=== PATIENT | male | born 1970 | race Caucasian/White ===

== ENCOUNTER 2017-07-27 19:50 | Observation (INO) | payer BC, OTHER ==
[~2017-07-27] VITALS: Ht 182.9 cm; Wt 116.3 kg
[~2017-07-27 19:50] MED LIST: ASPI325T45 PO; LEVO100T7 PO; PLV75 PO; ZCR10 PO
[2017-07-27] MEDS ORDERED: LISI-461 PO (20:04)
[2017-07-27] MEDS ORDERED: CLOP1TAB15 PO (20:04)
[2017-07-27] MEDS ORDERED: SIMV-150 PO (20:04)
--- NOTE | 2017-07-27 20:31 | EMERGENCY ROOM VISIT NOTE ---
History Report prepared by Madeline: Chuy Ny Under the Supervision of: Dr. Deepak Lawson M.D. First contact with patient: 20:10 Chief Complaint: STROKE SYMPTOMS Stated Complaint: LEG NUMBNESS,BLURRY VISION, HX OF STROKE History of Present Illness The patient is a 47 year old male who presents to the Emergency Room with complaints of recurrent leg weakness at 1915 today. He notes that he became dizzy and his left leg became heavy. He reports barely being able to walk because he could hardly move his left leg. He states the symptoms lasted for one minutes, though recurred. He has a history of a stroke in the past and reports similar symptoms along with blurry vision, ringing in the ears, slurred speech, leg weakness, and could not sit up. He does not currently have any changes in vision, ringing in the ears, or slurred speech. He denies any fevers , chills, cough, or congestion. Per nursing staff, the patient's blood sugar is 93. He denies any history of cardiac problems or hypertension, though he was placed on blood pressure medication as a precaution. Source of History: patient Onset: 1914 today Position: leg (left) Quality: other (weakness) Timing: other (recurrent) Associated Symptoms: No fevers, No chills, No cough Note: He denies any congestion. He denies any changes in vision, ringing in the ears, or slurred speech. Review of Systems See HPI for pertinent positives and negatives. A total of ten systems were reviewed and were otherwise negative. Past Medical & Surgical Medical Problems: (1) Hypothyroid (2) TIA (transient ischemic attack) Family History No significant family history Social History Smoking Status: Never Smoker Alcohol Use: none Drug Use: none Marital Status: Housing Status: lives with significant other Occupation Status: employed Current/Historical Medications Scheduled Clopidogrel (Plavix), 75 MG PO DAILY Levothyroxine Sodium (Levothyroxine Sodium), 100 MCG PO DAILY Lisinopril (Lisinopril), 1 TAB PO DAILY Simvastatin (Simvastatin), 1 TAB PO HS Scheduled PRN Aspirin (Aspirin), 325 MG PO DAILY PRN for Pain Allergies Coded Allergies: No Known Allergies (Verified , 07/27/17) Physical Exam Vital Signs Date Time Temp Pulse Resp B/P (MAP) Pulse Ox O2 Delivery O2 Flow Rate FiO2 07/27/17 20:59 65 20 126/82 96 07/27/17 20:31 96 Room Air 07/27/17 19:55 36.3 78 18 167/104 96 Room Air Physical Exam GENERAL: Awake, alert, well appearing, no distress HENT: Normocephalic, atraumatic. TM's normal. Oropharynx unremarkable. EYES: PERRL. EOMI. Normal conjunctiva. Sclera non-icteric. NECK: Supple. No nuchal rigidity. FROM. No JVD or bruit. RESPIRATORY: CTAB CARDIAC: RRR. No murmur. ABDOMEN: Soft, non distended. No tenderness to palpation. No rebound or guarding. No masses. RECTAL: Deferred. MUSCULOSKELETAL: Unremarkable. No edema. No discoloration. Gross motor strength symmetric. NEURO: Cranial nerves 2-12 grossly intact. Normal sensorium. No sensory or motor deficits noted. Speech normal. No pronator drift. Normal cerebellar function with arkzaq-sy-msye, alternating palms, qahq-jb-rquw SKIN: No rash or jaundice noted. LYMPH: No adenopathy. Medical Decision & Procedures ER Provider Diagnostic Interpretation: Radiology results as stated below per my review and radiologist interpretation: CHEST ONE VIEW PORTABLE CLINICAL HISTORY: weakness dyspnea COMPARISON STUDY: No previous studies for comparison. FINDINGS: The bones soft tissues and hemidiaphragms are normal. The cardiomediastinal silhouette is normal. The lungs are clear. The pulmonary vasculature is normal. IMPRESSION: Negative chest. The above report was generated using voice recognition software. It may contain grammatical, syntax or spelling errors. Electronically signed by: Charanjit Islas M.D. 07/27/2017 8:39 PM Dictated Date/Time: 07/27/2017 8:38 PM HEAD WITHOUT CONTRAST (CT) CT DOSE: 1110.40 mGy.cm HISTORY: Mental status change Stroke TECHNIQUE: Multiaxial CT images of the head were performed without the use of intravenous contrast. A dose lowering technique was utilized adhering to the principles of ALARA. Comparison: None. Findings: The paranasal sinuses and mastoid air cells are clear. The calvarium and skull base are intact. The ventricles and sulci are within normal limits. There is no mass, hematoma, midline shift, or acute infarct. Impression: No acute intracranial abnormality. The above report was generated using voice recognition software. It may contain grammatical, syntax or spelling errors. Electronically signed by: Charanjit Islas M.D. 07/27/2017 9:00 PM Dictated Date/Time: 07/27/2017 8:59 PM NECK ANGIO WITH CONTRAST HISTORY: Mental status change stroke TECHNIQUE: Multiaxial CT images of the neck were performed following the intravenous administration of contrast to evaluate the major cervical vessels. Maximum intensity projection images were also obtained. All measurements were calculated based on NASCET criteria. A dose lowering technique was utilized adhering to the principles of ALARA. COMPARISON STUDY: MRA 11/30/2014 FINDINGS: The aortic arch and proximal great vessels are widely patent. There is no significant stenosis, occlusion, or dissection identified within the bilateral common carotid, internal carotid, or vertebral arteries. IMPRESSION: No significant stenosis, occlusion, or dissection identified within the carotid or vertebral arteries. The above report was generated using voice recognition software. It may contain grammatical, syntax or spelling errors. Electronically signed by: Charanjit Islas M.D. 07/27/2017 9:03 PM Dictated Date/Time: 07/27/2017 9:01 PM HEAD ANGIO WITH CONTRAST CLINICAL HISTORY: Mental status change Stroke TECHNIQUE: Transaxial acquisition with multi axial reformatted images COMPARISON STUDY: MRA brain 11/29/2014 FINDINGS: Negative intracranial CTA. All major structures the anterior middle and para posterior cerebral circulation are unremarkable. No evidence for aneurysm or dissection. IMPRESSION: Normal study The above report was generated using voice recognition software. It may contain grammatical, syntax or spelling errors. Electronically signed by: Charanjit Islas M.D. 07/27/2017 9:06 PM Dictated Date/Time: 07/27/2017 9:04 PM Laboratory Results 07/27/17 20:15 Red Blood Count 4.88, Mean Corpuscular Volume 90.0, Mean Corpuscular Hemoglobin 32.0, Mean Corpuscular Hemoglobin Concent 35.5, Mean Platelet Volume 9.9, Neutrophils (%) (Auto) 59.5, Lymphocytes (%) (Auto) 27.9, Monocytes (%) (Auto) 10.3, Eosinophils (%) (Auto) 1.9, Basophils (%) (Auto) 0.2, Neutrophils # (Auto ) 3.12, Lymphocytes # (Auto) 1.46, Monocytes # (Auto) 0.54, Eosinophils # (Auto ) 0.10, Basophils # (Auto) 0.01 07/27/17 20:15 Test 07/27/17 20:10 07/27/17 20:15 07/27/17 20:17 Bedside Glucose 93 mg/dl (70-99) White Blood Count 5.24 K/uL (4.8-10.8) Red Blood Count 4.88 M/uL (4.7-6.1) Hemoglobin 15.6 g/dL (14.0-18.0) Hematocrit 43.9 % (42-52) Mean Corpuscular Volume 90.0 fL (80-100) Mean Corpuscular Hemoglobin 32.0 pg (25-34) Mean Corpuscular Hemoglobin Concent 35.5 g/dl (32-36) Platelet Count 181 K/uL (130-400) Mean Platelet Volume 9.9 fL (7.4-10.4) Neutrophils (%) (Auto) 59.5 % Lymphocytes (%) (Auto) 27.9 % Monocytes (%) (Auto) 10.3 % Eosinophils (%) (Auto) 1.9 % Basophils (%) (Auto) 0.2 % Neutrophils # (Auto) 3.12 K/uL (1.4-6.5) Lymphocytes # (Auto) 1.46 K/uL (1.2-3.4) Monocytes # (Auto) 0.54 K/uL (0.11-0.59) Eosinophils # (Auto) 0.10 K/uL (0-0.5) Basophils # (Auto) 0.01 K/uL (0-0.2) RDW Standard Deviation 39.6 fL (36.4-46.3) RDW Coefficient of Variation 12.1 % (11.5-14.5) Immature Granulocyte % (Auto) 0.2 % Immature Granulocyte # (Auto) 0.01 K/uL (0.00-0.02) Prothrombin Time 10.5 SECONDS (9.0-12.0) Prothromb Time International Ratio 1.0 (0.9-1.1) Activated Partial Thromboplast Time 26.6 SECONDS (21.0-31.0) Partial Thromboplastin Ratio 1.0 Anion Gap 8.0 mmol/L (3-11) Est Creatinine Clear Calc Drug Dose 92.4 ml/min Estimated GFR () 75.7 Estimated GFR (Non- 65.3 BUN/Creatinine Ratio 14.8 (10-20) Calcium Level 8.8 mg/dl (8.5-10.1) Magnesium Level 1.9 mg/dl (1.8-2.4) Total Creatine Kinase 156 U/L (39-308) Creatine Kinase MB 1.7 ng/ml (0.5-3.6) Creatine Kinase MB Ratio 1.1 (0-3.0) Troponin I < 0.015 ng/ml (0-0.045) Thyroid Stimulating Hormone (TSH) 17.900 uIu/ml (0.300-4.500) Bedside Prothrombin Time INR 1.0 (0.9-1.1) Laboratory results reviewed by me ECG Per My Interpretation Indication: weakness Rate (beats per minute): 67 Rhythm: normal sinus Findings: no acute ischemic change, other (Normal axis. ) Change: Patient's electrocardiogram interpreted by me. ED Course 2019: The patient was evaluated in room C6. A complete history and physical exam was performed. 2158: I spoke with Dr. Centeno, [facility]. We discussed the patient' s case. The patient will be evaluated by the [facility] for further management. Medical Decision I reviewed the patient's past medical history, medications, and the nursing notes as described above. The patient's presentation and history were concerning for CVA, TIA, migraine, pneumonia, arrhythmia, dehydration, electrolyte abnormalities, UTI among others. The patient is a 47-year-old gentleman with a past medical history of stroke without residual deficits presents emergency Department with 15 minutes of left leg numbness and weakness that resolved spontaneously prior to arrival per [facility]. On arrival the patient is no acute distress, afebrile stable vital signs. He is neurologically intact including normal cerebellar function with finger-to- nose, alternating palms, slaw-[id number]-cwcl. NIH score 0. CT head and CTA of the head and neck negative for acute stroke or's large vessel occlusion. Chest x- ray unremarkable. Labs unremarkable. The patient's history of prior stroke it is reasonable to admit the patient for further stroke rule out. [facility] for further management. Medication Reconcilliation Current Medication List: was personally reviewed by me Blood Pressure Screening Patient's blood pressure: Elevated blood pressure Blood pressure disposition: Elevated BP felt to be situational Consults Time Called: 2129 Consulting Physician: [facility] Returned Call: [phone] [facility] We discussed the patient's case. The patient will be evaluated by the [facility] for further management. Impression Primary Impression: Transient weakness of left leg Scribe Attestation The scribe's documentation has been prepared under my direction and personally reviewed by me in its entirety. I confirm that the note above accurately reflects all work, treatment, procedures, and medical decision making performed by me. Departure Information Dispostion Being Evaluated By Hospitalist Referrals Adal Joel MD (PCP) Patient Instructions My [facility] Stroke History Time Last Known Well 1914 Stroke t-PA Criteria Reviewed Does NOT meet criteria for t-PA Reason t-PA Not Given Treatment not indicated
[2017-07-27 20:32] LABS: BASO % 0.2 %; BASO ABS # 0.01 K/uL (0-0.2); EOS % 1.9 %; HEMATOCRIT 43.9 % (42-52); HEMOGLOBIN 15.6 g/dL (14.0-18.0); IG# 0.01 K/uL (0.00-0.02); LYMPH % 27.9 %; LYMPH ABS # 1.46 K/uL (1.2-3.4); MEAN CORPUSCULAR HGB CONC 35.5 g/dl (32-36); MEAN PLATELET VOLUME 9.9 fL (7.4-10.4); MONO % 10.3 %; MONO ABS # 0.54 K/uL (0.11-0.59); NEUT % 59.5 %; NEUT ABS # 3.12 K/uL (1.4-6.5); PLATELET COUNT 181 K/uL (130-400); RED CELL DISTRIBUTION WIDTH CV 12.1 % (11.5-14.5); RED CELL DISTRIBUTION WIDTH SD 39.6 fL (36.4-46.3); WHITE BLOOD COUNT 5.24 K/uL (4.8-10.8)
--- NOTE | 2017-07-27 20:40 | DIAGNOSTIC IMAGING REPORT ---
CHEST ONE VIEW PORTABLE CLINICAL HISTORY: weakness dyspnea COMPARISON STUDY: No previous studies for comparison. FINDINGS: The bones soft tissues and hemidiaphragms are normal. The cardiomediastinal silhouette is normal. The lungs are clear. The pulmonary vasculature is normal. IMPRESSION: Negative chest. The above report was generated using voice recognition software. It may contain grammatical, syntax or spelling errors. Electronically signed by: Charanjit Islas M.D. 07/27/2017 8:39 PM Dictated Date/Time: 07/27/2017 8:38 PM
[2017-07-27 20:43] LABS: PTT PATIENT 26.6 SECONDS (21.0-31.0)
[2017-07-27 20:47] LABS: BLOOD UREA NITROGEN 19 mg/dl (7-18); CALCIUM 8.8 mg/dl (8.5-10.1); CARBON DIOXIDE 27 mmol/L (21-32); CREATININE 1.28 mg/dl (0.60-1.40); GLUCOSE 93 mg/dl (70-99); POTASSIUM 3.6 mmol/L (3.5-5.1); SODIUM 139 mmol/L (136-145)
[2017-07-27 20:53] LABS: CKMB 1.7 ng/ml (0.5-3.6)
--- NOTE | 2017-07-27 21:01 | DIAGNOSTIC IMAGING REPORT ---
HEAD WITHOUT CONTRAST (CT) CT DOSE: 1110.40 mGy.cm HISTORY: Mental status change Stroke TECHNIQUE: Multiaxial CT images of the head were performed without the use of intravenous contrast. A dose lowering technique was utilized adhering to the principles of ALARA. Comparison: None. Findings: The paranasal sinuses and mastoid air cells are clear. The calvarium and skull base are intact. The ventricles and sulci are within normal limits. There is no mass, hematoma, midline shift, or acute infarct. Impression: No acute intracranial abnormality. The above report was generated using voice recognition software. It may contain grammatical, syntax or spelling errors. Electronically signed by: Charanjit Islas M.D. 07/27/2017 9:00 PM Dictated Date/Time: 07/27/2017 8:59 PM
--- NOTE | 2017-07-27 21:04 | DIAGNOSTIC IMAGING REPORT ---
NECK ANGIO WITH CONTRAST HISTORY: Mental status change stroke TECHNIQUE: Multiaxial CT images of the neck were performed following the intravenous administration of contrast to evaluate the major cervical vessels. Maximum intensity projection images were also obtained. All measurements were calculated based on NASCET criteria. A dose lowering technique was utilized adhering to the principles of ALARA. COMPARISON STUDY: MRA 11/30/2014 FINDINGS: The aortic arch and proximal great vessels are widely patent. There is no significant stenosis, occlusion, or dissection identified within the bilateral common carotid, internal carotid, or vertebral arteries. IMPRESSION: No significant stenosis, occlusion, or dissection identified within the carotid or vertebral arteries. The above report was generated using voice recognition software. It may contain grammatical, syntax or spelling errors. Electronically signed by: Charanjit Islas M.D. 07/27/2017 9:03 PM Dictated Date/Time: 07/27/2017 9:01 PM
--- NOTE | 2017-07-27 21:07 | DIAGNOSTIC IMAGING REPORT ---
HEAD ANGIO WITH CONTRAST CLINICAL HISTORY: Mental status change Stroke TECHNIQUE: Transaxial acquisition with multi axial reformatted images COMPARISON STUDY: MRA brain 11/29/2014 FINDINGS: Negative intracranial CTA. All major structures the anterior middle and para posterior cerebral circulation are unremarkable. No evidence for aneurysm or dissection. IMPRESSION: Normal study The above report was generated using voice recognition software. It may contain grammatical, syntax or spelling errors. Electronically signed by: Charanjit Islas M.D. 07/27/2017 9:06 PM Dictated Date/Time: 07/27/2017 9:04 PM
[2017-07-27] MEDS ORDERED: TRAMADOL HCL 50 MG TAB PO PRN (23:00)
[2017-07-27] MEDS ORDERED: NITROGLYCERIN 0.4 MG SL PER TAB CHARGE SL PRN (23:00)
[2017-07-27] MEDS ORDERED: PHARMACIST DISCHARGE MED REC CONSULT PRN (23:00)
[2017-07-27] MEDS ORDERED: LORAZEPAM 2 MG/ML 1 ML VIAL IV PRN (23:00)
[2017-07-27] MEDS ORDERED: PROCHLORPERAZINE INJ 5 MG in SYRINGE 4 ML IV PRN (23:00)
[2017-07-27] MEDS ORDERED: ACETAMINOPHEN 325 MG TAB PO PRN (23:00)
[2017-07-28] VITALS (9 sets, daily range): BP systolic 127–161; BP diastolic 73–101; PULSE 52–67; TEMP 36.5–36.8; O2SAT 94–97; Ht 182.9 cm; Wt 116.3 kg
--- NOTE | 2017-07-28 00:11 | HISTORY & PHYSICAL EXAMINATION ---
DATE OF ADMISSION: 07/27/2017 PRIMARY CARE PHYSICIAN: Adal Joel MD. CHIEF COMPLAINT: Left leg weakness, numbness. HISTORY OF PRESENT ILLNESS: History obtained from patient and records. Medical history significant for CVA, hypertension, hypothyroidism, PFO, arthritis. Recent confinement November 2014 for cerebellar CVA. Patient discharged on Aspirin, Plavix. Aspirin later discontinued outpatient. Patient was at work today when he noted left lower extremity weakness, numbness symptoms, no back pain. Lasted for about a minute. Transient dizziness and vague headache symptoms. Compliant with home medications. Patient took rbyc-uom-ttrntxy aspirin. Patient currently comfortable at the ER. MEDICAL HISTORY: As above. SURGERIES: Knee surgery. HOME MEDICATIONS: Include Plavix, lisinopril, levothyroxine, simvastatin. ALLERGIES: No known drug allergies. FAMILY HISTORY: There is a family history of alcoholism, AFib. PERSONAL AND SOCIAL HISTORY: Nonsmoker, no chronic intake of alcoholic beverages. [employer] employee. REVIEW OF SYSTEMS: As per HPI. All 10 systems reviewed. All other ROS negative. PHYSICAL EXAMINATION: VITAL SIGNS: Blood pressure was noted to be 167/104, later 122/82, pulse rate 70, RR 18, temperature 36.7, sats 96 on room air. GENERAL: Obese, comfortable, pleasant, no respiratory distress. SKIN: Normal color. Warm. HEENT: Partial alopecia. Pale palpebral conjunctiva. No ptosis. Moist buccal mucosa. NECK: Short, supple. CHEST: Clear to auscultation. No tenderness. HEART: Regular rate and rhythm. No murmur. ABDOMEN: Soft, nontender. EXTREMITIES: No edema, no gross deformities. No tenderness. NEUROLOGIC: Coherent. No gross focality. LABORATORY DATA: Hemoglobin was noted to be 15.6, hematocrit 32.9, white cell count 9, platelets 181. Sodium 139, potassium 3.6, chloride 103, CO2 27, creatinine 1.28, BUN 19. TSH 17.9 CT head, no acute pathology. CT head angio, normal study. CT neck angio no significant stenosis. ASSESSMENT: 1. Transient ischemic attack. History of cerebellar CVA. 2. Hypertension, slightly elevated 3. Hypothyroidism, TSH markedly elevated. PLAN: Observation PCU, neuro checks MRI/MRA brain Aspirin and Plavix for now for secondary stroke prevention until recurrent stroke ruled out Neurology consult RE TIA (Patient known to Dr. Macias) Permissive hypertension until recurrent stroke ruled out Recheck other TFTs, Levothyroxine dose may need adjustment pending results DVT prophylaxis Lovenox subQ. Full code. MTDD
[2017-07-28] MEDS ORDERED: NSS + 20MEQ KCL 1000ML 1,000 ML IV ONE (01:00)
[2017-07-28] MEDS ORDERED: IV FLUIDS COMPLETED PRN (01:00)
[2017-07-28] MEDS ORDERED: INFLUENZA ADMINISTRATION CHARGE ONE (05:30)
[2017-07-28] MEDS ORDERED: INFLUENZA VIRUS QUAD VACCINE 0.5 ML SYR IM. ONE (05:30)
[2017-07-28 06:19] LABS: BASO % 0.2 %; BASO ABS # 0.01 K/uL (0-0.2); EOS % 2.5 %; EOS ABS # 0.13 K/uL (0-0.5); HEMATOCRIT 43.5 % (42-52); HEMOGLOBIN 15.2 g/dL (14.0-18.0); IG# 0.01 K/uL (0.00-0.02); LYMPH % 30.2 %; LYMPH ABS # 1.59 K/uL (1.2-3.4); MEAN CELL VOLUME 90.8 fL (80-100); MEAN CORPUSCULAR HEMOGLOBIN 31.7 pg (25-34); MEAN CORPUSCULAR HGB CONC 34.9 g/dl (32-36); MEAN PLATELET VOLUME 9.9 fL (7.4-10.4); MONO % 11.4 %; NEUT % 55.5 %; NEUT ABS # 2.92 K/uL (1.4-6.5); PLATELET COUNT 164 K/uL (130-400); RED CELL DISTRIBUTION WIDTH CV 12.2 % (11.5-14.5); RED CELL DISTRIBUTION WIDTH SD 40.5 fL (36.4-46.3); WHITE BLOOD COUNT 5.26 K/uL (4.8-10.8)
[2017-07-28] MEDS ORDERED: LEVOTHYROXINE 100 MCG TAB PO SCH (06:30)
--- NOTE | 2017-07-28 07:02 | DIAGNOSTIC IMAGING REPORT ---
MRI OF THE BRAIN WITHOUT CONTRAST CLINICAL HISTORY: Pleural effusion. Left leg numbness. History of stroke. COMPARISON STUDY: MRI of the brain November 29, [address]/CTA of the head July 27, 2017. TECHNIQUE: Utilizing a 1.5 Tonya magnet and dedicated coil, multiplanar, multiecho imaging of the brain was performed without IV contrast. FINDINGS: There are no foci of restricted diffusion. No acute intracranial hemorrhage, midline shift or mass effect is present. Brain volume is normal. Ventricular system is normal. Basilar cisterns are patent. There are no extra-axial collections. Flow-voids for the major intracranial vessels are present. No intracranial masses identified on this unenhanced examination. A lacunar infarcts within the right cerebellar hemisphere are noted. These correspond to the infarcts shown on MRI of November 29, 2014. A few punctate white matter T2 hyperintense foci are unchanged. IMPRESSION: 1. No acute intracranial findings. 2. Old lacunar infarcts within the right cerebellar hemisphere which corresponds to the infarcts shown on MRI of November 29, 2014. Electronically signed by: Alessandro Brian M.D. 07/28/2017 7:01 AM Dictated Date/Time: 07/28/2017 6:56 AM
--- NOTE | 2017-07-28 07:13 | DIAGNOSTIC IMAGING REPORT ---
MRA HEAD WITHOUT CONTRAST HISTORY: 47 years-old Male Stroke - Attention to [place] acute strokelike symptoms COMPARISON: MRI of the brain of same day, CTA had 07/27/2017. TECHNIQUE: MRA of the head was obtained without contrast utilizing 3-D [id number] sequencing with MIP reformats. All measurements were obtained according to NASCET criteria. FINDINGS: The imaged bilateral internal cerebral arteries are widely patent. The bilateral middle and anterior cerebral arteries are also widely patent. The anterior communicating artery is unremarkable. Imaged bilateral vertebral arteries are patent. The basilar artery and bilateral posterior cerebral arteries are patent. origin of the right posterior cerebral artery. No aneurysm, dissection, high-grade stenosis or proximal branch occlusion. IMPRESSION: 1. No high-grade stenosis, aneurysm, dissection or proximal branch occlusion. 2. origin of the right posterior cerebral artery. The above report was generated using voice recognition software. It may contain grammatical, syntax or spelling errors. Electronically signed by: Enio Holley M.D. 07/28/2017 7:12 AM Dictated Date/Time: 07/28/2017 7:04 AM
[2017-07-28] MEDS: CLOPIDOGREL BISULFATE 75 MG TAB PO SCH (08:23)
[2017-07-28] MEDS: ASPIRIN 81 MG ECTAB PO SCH (08:23)
[2017-07-28] MEDS: ENOXAPARIN 40 MG/0.4 ML SYR SC SCH (08:24)
[2017-07-28] MEDS ORDERED: ASPIRIN 325 MG ECTAB PO SCH (09:00)
[2017-07-28] MEDS ORDERED: LISINOPRIL 10 MG TAB PO ONE (12:30)
--- NOTE | 2017-07-28 12:38 | Progress Note ---
Subjective Date of Service: Jul 28, 2017. Subjective Pt evaluation today including: conversation w/ patient, physical exam, lab review, review of studies, review of inpatient medication list Saw/examined the patient in room 280 He is doing well, no residual symptoms Present with transient L lower extremity weakness and numbness/tingling Problem List Medical Problems: (1) Transient weakness of left leg Status: Acute Review of Systems Constitutional: + weakness, + fatigue Respiratory: No cough, No sputum, No shortness of breath Cardiac: No chest pain Abdomen: No pain, No nausea, No vomiting, No diarrhea Neurologic: No paralysis, No weakness (resolved), No numbness/tingling ( resolved), No vertigo, No balance problems Heme: No abnormal bleeding/bruising Medications Current Inpatient Medications Medications (Trade) Dose Ordered Sig/Reta Route Start Time Stop Time Status Last Admin Dose Admin Enoxaparin Sodium (Lovenox Inj) 40 mg Q24H SC 07/28/17 09:00 08/27/17 08:59 07/28/17 08:24 40 MG Potassium Chloride/Sodium Chloride 1,000 ml @ 75 mls/hr [id number] ONCE IV 07/28/17 01:00 07/28/17 14:19 07/28/17 01:07 75 MLS/HR Acetaminophen (Tylenol Tab) 650 mg Q4H PRN PO 07/27/17 23:00 08/26/17 22:59 Nitroglycerin (Nitrostat Tab) 0.4 mg UD PRN SL 07/27/17 23:00 08/26/17 22:59 Aspirin (Ecotrin Tab) 81 mg QAM PO 07/28/17 09:00 08/27/17 08:59 07/28/17 08:23 81 MG Miscellaneous Information (Pharmacist Discharge Med Rec Consult) 1 ea UD PRN N/A 07/27/17 23:00 08/26/17 22:59 Tramadol HCl (Ultram Tab) 25 mg Q6H PRN PO 07/27/17 23:00 08/26/17 22:59 Prochlorperazine Edisylate 5 mg/ Syringe 5 ml @ 5 mls/min Q6H PRN IV 07/27/17 23:00 08/26/17 22:59 Lorazepam (Ativan Inj) 0.5 mg Q4H PRN IV 07/27/17 23:00 08/26/17 22:59 Clopidogrel Bisulfate (plAVix TAB) 75 mg DAILY PO 07/28/17 09:00 08/27/17 08:59 07/28/17 08:23 75 MG Simvastatin (Zocor Tab) 10 mg HS PO 07/28/17 21:00 08/27/17 20:59 Miscellaneous (Iv Fluids Completed) 1 ea PRN PRN N/A 07/28/17 01:00 07/28/18 00:59 Levothyroxine Sodium (Synthroid Tab) 112 mcg DAILYBB PO 07/29/17 06:30 08/28/17 06:29 Objective Vital Signs Date Time Temp Pulse Resp B/P (MAP) Pulse Ox O2 Delivery O2 Flow Rate FiO2 07/28/17 08:09 Room Air 07/28/17 07:49 36.6 52 20 149/90 (109) 97 Room Air 07/28/17 05:11 36.5 54 18 129/73 (91) 94 Room Air 07/28/17 04:00 Room Air 07/28/17 00:59 36.6 57 20 134/81 Room Air 07/27/17 23:35 69 16 149/96 96 07/27/17 22:45 67 20 129/82 96 Room Air 07/27/17 20:59 65 20 126/82 96 07/27/17 20:31 96 Room Air 07/27/17 19:55 36.3 78 18 167/104 96 Room Air Physical Exam General Appearance: no apparent distress Respiratory/Chest: chest non-tender, lungs clear, normal breath sounds, no respiratory distress, no accessory muscle use Cardiovascular: regular rate, rhythm, no edema, no murmur Abdomen: normal bowel sounds, non tender, soft Neurologic/Psychiatric: extension course counselor II-XII nml as tested, no motor/sensory deficits, alert, normal mood/affect, oriented x 3 Skin: normal color Lymphatic: no adenopathy Laboratory Results Last 24 Hours Test 07/27/17 20:10 07/27/17 20:15 07/27/17 20:17 07/28/17 05:43 Bedside Glucose 93 mg/dl White Blood Count 5.24 K/uL 5.26 K/uL Red Blood Count 4.88 M/uL 4.79 M/uL Hemoglobin 15.6 g/dL 15.2 g/dL Hematocrit 43.9 % 43.5 % Mean Corpuscular Volume 90.0 fL 90.8 fL Mean Corpuscular Hemoglobin 32.0 pg 31.7 pg Mean Corpuscular Hemoglobin Concent 35.5 g/dl 34.9 g/dl Platelet Count 181 K/uL 164 K/uL Mean Platelet Volume 9.9 fL 9.9 fL Neutrophils (%) (Auto) 59.5 % 55.5 % Lymphocytes (%) (Auto) 27.9 % 30.2 % Monocytes (%) (Auto) 10.3 % 11.4 % Eosinophils (%) (Auto) 1.9 % 2.5 % Basophils (%) (Auto) 0.2 % 0.2 % Neutrophils # (Auto) 3.12 K/uL 2.92 K/uL Lymphocytes # (Auto) 1.46 K/uL 1.59 K/uL Monocytes # (Auto) 0.54 K/uL 0.60 K/uL Eosinophils # (Auto) 0.10 K/uL 0.13 K/uL Basophils # (Auto) 0.01 K/uL 0.01 K/uL RDW Standard Deviation 39.6 fL 40.5 fL RDW Coefficient of Variation 12.1 % 12.2 % Immature Granulocyte % (Auto) 0.2 % 0.2 % Immature Granulocyte # (Auto) 0.01 K/uL 0.01 K/uL Prothrombin Time 10.5 SECONDS Prothromb Time International Ratio 1.0 Activated Partial Thromboplast Time 26.6 SECONDS Partial Thromboplastin Ratio 1.0 Sodium Level 139 mmol/L Potassium Level 3.6 mmol/L Chloride Level 103 mmol/L Carbon Dioxide Level 27 mmol/L Anion Gap 8.0 mmol/L Blood Urea Nitrogen 19 mg/dl Creatinine 1.28 mg/dl Est Creatinine Clear Calc Drug Dose 92.4 ml/min Estimated GFR () 75.7 Estimated GFR (Non- 65.3 BUN/Creatinine Ratio 14.8 Random Glucose 93 mg/dl Calcium Level 8.8 mg/dl Magnesium Level 1.9 mg/dl Total Creatine Kinase 156 U/L Creatine Kinase MB 1.7 ng/ml Creatine Kinase MB Ratio 1.1 Troponin I < 0.015 ng/ml Thyroid Stimulating Hormone (TSH) 17.900 uIu/ml Bedside Prothrombin Time INR 1.0 Free Thyroxine 0.93 ng/dl Total Triiodothyronine 0.90 ng/ml Assessment and Plan This is a 47 year old male with a PMH of HTN, HLD, hypothyroidism, hx. of CVA - presents with transient L lower extremity weakness/numbness/tingling Transient Numbness/Tingling in the setting of a history of CVA Head CT, Brain MRI, MRA and CTA are all negative for acute process for now, we can continue aspirin and Plavix neurology consulted continue low dose Zocor, can possibly increase this dose will check vitamin B12 levels Hypothyroidism TSH > 10 will increase Synthroid dose to 112mcg recheck TSH in 4-6 weeks HTN initially permissive HTN was allowed prior to ruling out acute CVA restarting Lisinopril and will monitor BP HLD lipid panel pending continue Zocor for now, will consider increasing this dose DVT ppx Lovenox FULL CODE
--- NOTE | 2017-07-28 13:35 | Neurology Consultation ---
Neurology Consultation Date of Consultation: Jul 28, 2017. Attending Physician: Deejay Hackett DO Primary Care Physician: Adal Joel MD Reason for Consultation: TIA History of Present Illness Source: patient, spouse Raffi is a 47 year old male with PMH CVA, HTN, hypothyroidism, PFO, arthritis. In November 2014 he was hospitalized and seen by Dr Macias for a for cerebellar CVA. He was discharged on plavix and aspirin but the aspirin was stopped after 5 days and he is still on the plavix 75 mg. He was at work today and presented with left lower extremity weakness, numbness which lasted for about a minute there was some blurring of vision and dizziness and a mild headache. he took and aspirin and he was brought to the ED. His is in the room and states he is back to baseline. denies CP, SOB, abdominal pain, one sided numbness weakness , tingling, falls, swallowing issues, N, V, hearing loss or tinnitus, his blood pressure was somewhat elevated on admission Past Medical/Surgical History Medical Problems: (1) Transient weakness of left leg Status: Acute Social History Drug Use: none Marital Status: Housing Status: lives with significant other Occupation Status: employed Allergies Coded Allergies: No Known Allergies (Verified , 07/27/17) Current Inpatient Medications Current Inpatient Medications Medications (Trade) Dose Ordered Sig/Reta Route Start Time Stop Time Status Last Admin Dose Admin Enoxaparin Sodium (Lovenox Inj) 40 mg Q24H SC 07/28/17 09:00 08/27/17 08:59 07/28/17 08:24 40 MG Potassium Chloride/Sodium Chloride 1,000 ml @ 75 mls/hr [id number] ONCE IV 07/28/17 01:00 07/28/17 14:19 07/28/17 01:07 75 MLS/HR Acetaminophen (Tylenol Tab) 650 mg Q4H PRN PO 07/27/17 23:00 08/26/17 22:59 Nitroglycerin (Nitrostat Tab) 0.4 mg UD PRN SL 07/27/17 23:00 08/26/17 22:59 Aspirin (Ecotrin Tab) 81 mg QAM PO 07/28/17 09:00 08/27/17 08:59 07/28/17 08:23 81 MG Miscellaneous Information (Pharmacist Discharge Med Rec Consult) 1 ea UD PRN N/A 07/27/17 23:00 08/26/17 22:59 Tramadol HCl (Ultram Tab) 25 mg Q6H PRN PO 07/27/17 23:00 08/26/17 22:59 Prochlorperazine Edisylate 5 mg/ Syringe 5 ml @ 5 mls/min Q6H PRN IV 07/27/17 23:00 08/26/17 22:59 Lorazepam (Ativan Inj) 0.5 mg Q4H PRN IV 07/27/17 23:00 08/26/17 22:59 Clopidogrel Bisulfate (plAVix TAB) 75 mg DAILY PO 07/28/17 09:00 08/27/17 08:59 07/28/17 08:23 75 MG Simvastatin (Zocor Tab) 10 mg HS PO 07/28/17 21:00 08/27/17 20:59 Miscellaneous (Iv Fluids Completed) 1 ea PRN PRN N/A 07/28/17 01:00 07/28/18 00:59 Levothyroxine Sodium (Synthroid Tab) 112 mcg DAILYBB PO 07/29/17 06:30 08/28/17 06:29 Lisinopril (Zestril Tab) 10 mg QAM PO 07/29/17 09:00 08/28/17 08:59 Physical Exam Vital Signs (Past 24 Hrs): Date Time Temp Pulse Resp B/P (MAP) Pulse Ox O2 Delivery O2 Flow Rate FiO2 07/28/17 12:19 36.5 62 20 161/100 (120) 94 Room Air 66 153/92 (112) 07/28/17 11:49 Room Air 07/28/17 08:09 Room Air 07/28/17 07:49 36.6 52 20 149/90 (109) 97 Room Air 07/28/17 05:11 36.5 54 18 129/73 (91) 94 Room Air 07/28/17 04:00 Room Air 07/28/17 00:59 36.6 57 20 134/81 Room Air 07/27/17 23:35 69 16 149/96 96 07/27/17 22:45 67 20 129/82 96 Room Air 07/27/17 20:59 65 20 126/82 96 07/27/17 20:31 96 Room Air 07/27/17 19:55 36.3 78 18 167/104 96 Room Air Physical Exam: Constitutional: appearance nourished, healthy and normal Ears, Nose, Mouth and Throat: mucous membranes moist, no injection and skin normal, eyes normal Cardiovascular: normal S-1 and S-2 and regular rate and rhythm Respiratory: clear to auscultation (CTA) and no rales, ronchi or wheeze Musculoskeletal: no peripheral edema and good distal pulses Skin: no stigmata of neurocutaneous disease noted and normal and intact Eyes: extraocular muscles intact (EOMI) and pupils equal, round and reactive to light (PERRL) NEUROLOGIC EXAMINATION: Mental status: Alert and interactive Oriented to full date and location Oriented to person Speech fluent with no evidence of aphasia Cranial Nerves Normal findings for Cranial Nerves II - XII Reflexes: Deep tendon reflexes were symmetrical and graded 2/5. Plantar responses were flexor. Sensory: no sensory deficits Coordination: Romberg absent Gait/Stance: Posture normal. Gait normal: with steady with steps, base, turning, heel and toe walking and tandem gait. Motor: Negative for pronator drift of out stretched arms with eyes closed. Strength: Normal - 5/5 all extremities Laboratory Results Past 24 Hours: 07/28/17 05:43 Red Blood Count 4.79, Mean Corpuscular Volume 90.8, Mean Corpuscular Hemoglobin 31.7, Mean Corpuscular Hemoglobin Concent 34.9, Mean Platelet Volume 9.9, Neutrophils (%) (Auto) 55.5, Lymphocytes (%) (Auto) 30.2, Monocytes (%) (Auto) 11.4, Eosinophils (%) (Auto) 2.5, Basophils (%) (Auto) 0.2, Neutrophils # (Auto ) 2.92, Lymphocytes # (Auto) 1.59, Monocytes # (Auto) 0.60, Eosinophils # (Auto ) 0.13, Basophils # (Auto) 0.01 07/27/17 20:15 Test 07/27/17 20:10 07/27/17 20:15 07/27/17 20:17 07/28/17 05:43 Bedside Glucose 93 mg/dl (70-99) Prothrombin Time 10.5 SECONDS (9.0-12.0) Prothromb Time International Ratio 1.0 (0.9-1.1) Activated Partial Thromboplast Time 26.6 SECONDS (21.0-31.0) Partial Thromboplastin Ratio 1.0 Anion Gap 8.0 mmol/L (3-11) Est Creatinine Clear Calc Drug Dose 92.4 ml/min Estimated GFR () 75.7 Estimated GFR (Non- 65.3 BUN/Creatinine Ratio 14.8 (10-20) Calcium Level 8.8 mg/dl (8.5-10.1) Magnesium Level 1.9 mg/dl (1.8-2.4) Total Creatine Kinase 156 U/L (39-308) Creatine Kinase MB 1.7 ng/ml (0.5-3.6) Creatine Kinase MB Ratio 1.1 (0-3.0) Troponin I < 0.015 ng/ml (0-0.045) Thyroid Stimulating Hormone (TSH) 17.900 uIu/ml (0.300-4.500) Bedside Prothrombin Time INR 1.0 (0.9-1.1) White Blood Count 5.26 K/uL (4.8-10.8) Red Blood Count 4.79 M/uL (4.7-6.1) Hemoglobin 15.2 g/dL (14.0-18.0) Hematocrit 43.5 % (42-52) Mean Corpuscular Volume 90.8 fL (80-100) Mean Corpuscular Hemoglobin 31.7 pg (25-34) Mean Corpuscular Hemoglobin Concent 34.9 g/dl (32-36) Platelet Count 164 K/uL (130-400) Mean Platelet Volume 9.9 fL (7.4-10.4) Neutrophils (%) (Auto) 55.5 % Lymphocytes (%) (Auto) 30.2 % Monocytes (%) (Auto) 11.4 % Eosinophils (%) (Auto) 2.5 % Basophils (%) (Auto) 0.2 % Neutrophils # (Auto) 2.92 K/uL (1.4-6.5) Lymphocytes # (Auto) 1.59 K/uL (1.2-3.4) Monocytes # (Auto) 0.60 K/uL (0.11-0.59) Eosinophils # (Auto) 0.13 K/uL (0-0.5) Basophils # (Auto) 0.01 K/uL (0-0.2) RDW Standard Deviation 40.5 fL (36.4-46.3) RDW Coefficient of Variation 12.2 % (11.5-14.5) Immature Granulocyte % (Auto) 0.2 % Immature Granulocyte # (Auto) 0.01 K/uL (0.00-0.02) Free Thyroxine 0.93 ng/dl (0.80-1.60) Total Triiodothyronine 0.90 ng/ml (0.60-1.81) Test 07/28/17 12:41 Imaging MRI brain combo- No acute intracranial findings. Old lacunar infarcts within the right cerebellar hemisphere which corresponds to the infarcts shown on MRI of November 29, 2014. MRA brain- No high-grade stenosis, aneurysm, dissection or proximal branch occlusion. 2. origin of the right posterior cerebral artery. CTA brain- normal CTA neck- No significant stenosis, occlusion, or dissection identified within the carotid or vertebral arteries. Impression 47 year old male s/p right LE weakness resolved Plan 1. cardiology - TTE previously showed PFO 2. MRI combo brain no evidence of new stroke 3. no arrythmia noted on out patient cardionet 4. continue to optimize HTN, DL LDL <70 5. continue plavix 75 mg 6. coag study was normal and no DVT on previous study 7. HTN, DL optimize, LDL < 70 8. US UE/LE bilaterally 9. ELLI - consult cardiology 10. out patient cardio net for further evaluation of arrhythmia further recommendations to follow I have seen and discussed above patient with Dr Valorie Macias, neurology Pt seen, prior r cerebellar infarct, mild htn, hyperlipidemia, PFO with shunt in past. Spell of LLE weak with dizziness lasting less 30 sec. MRI no acute event.exam notable for mild flattening of L NLF otherwise neg, Rec ELLI, UE and LE venous doppler, asa, plavix. Will likely refer to phylicia Posadas for consideration of closure. SANDEEP Macias MD Rec ELLI,
[2017-07-28 16:34] LABS: ISTAT CREATININE 1.3 mg/dl (0.6-1.3); ISTAT IONIZED CALCIUM 1.16 mmol/l (1.12-1.32); ISTAT POTASSIUM 3.6 mEq/L (3.3-5.0)
[2017-07-28] MEDS ORDERED: SIMVASTATIN 10 MG TAB PO SCH (21:00)
--- NOTE | 2017-07-28 21:31 | DIAGNOSTIC IMAGING REPORT ---
BILATERAL UPPER EXTREMITY VENOUS DOPPLER HISTORY: recurrent stroke symptoms known patent foramen ovale COMPARISON STUDY: None. FINDINGS: The bilateral internal jugular veins are patent. There is normal flow within the bilateral subclavian veins. There is normal flow and compressibility within the bilateral axillary, basilic, brachial, radial, ulnar, and visualized cephalic veins. IMPRESSION: No DVT within the right or left upper extremity. Electronically signed by: Carlos Enrique Damian M.D. 07/28/2017 9:30 PM Dictated Date/Time: 07/28/2017 9:29 PM
--- NOTE | 2017-07-28 21:32 | DIAGNOSTIC IMAGING REPORT ---
BILATERAL LOWER EXTREMITY VENOUS DOPPLER HISTORY: recurrent stroke symptoms known patent [place] COMPARISON STUDY: None. FINDINGS: There is normal compressibility, flow, and augmentation within the bilateral lower extremity deep venous systems. Nonocclusive calcified thrombus within the bilateral lesser saphenous veins. Therefore, this is consistent with chronic thrombus. IMPRESSION: 1. No DVT within the right or left lower extremity. 2. Nonocclusive calcified thrombus within the bilateral lesser saphenous veins. Therefore, this is consistent with chronic thrombus. Electronically signed by: Carlos Enrique Damian M.D. 07/28/2017 9:31 PM Dictated Date/Time: 07/28/2017 9:30 PM
[2017-07-29] VITALS (12 sets, daily range): BP systolic 107–132; BP diastolic 53–87; PULSE 49–67; TEMP 36.4–36.8; O2SAT 94–98
[2017-07-29] MEDS: LEVOTHYROXINE 112 MCG TAB PO SCH ×2 (05:50→13:04)
[2017-07-29] MEDS ORDERED: LISINOPRIL 10 MG TAB PO SCH (09:00)
[2017-07-29] MEDS ORDERED: MEPERIDINE HCL 50 MG/ML CARP ONE (10:36)
[2017-07-29] MEDS ORDERED: BENZOCAIN/TETRACA/BUTAM SPRAY 200 APPLN/20 GM SPRY ONE (10:36)
[2017-07-29] MEDS ORDERED: CANNULA ONE (10:37)
[2017-07-29] MEDS ORDERED: MIDAZOLAM HCL 1 MG/ML 2ML VIAL ONE (10:37)
--- NOTE | 2017-07-29 12:09 | Pre Sedation Assessment ---
Pre Sedation Assessment General Date of Sedation: Jul 29, 2017. Vital Signs Past 12 Hours Date Time Temp Pulse Resp B/P (MAP) Pulse Ox O2 Delivery O2 Flow Rate FiO2 07/29/17 12:04 65 20 111/63 (79) 97 Nasal Cannula 2 07/29/17 10:54 62 12 141/79 (99) 97 Room Air 07/29/17 08:00 95 Room Air 07/29/17 07:27 36.4 49 16 107/69 (82) 95 Room Air 07/29/17 04:47 36.8 63 18 114/70 (85) 94 Room Air 07/29/17 04:00 Room Air Review Cardiovascular: regular rate, rhythm Lungs: chest non-tender Pre-Sedation Airway Assessment Smoking Status: Never Smoker Hx of Sleep Apnea: No Short Thick Neck: No Thyro-mental Distance: > 3 Finger Breadths Oral Cavity: WNL Mallampati Classification: Class I ASA Classification: Class II NPO Status Date of Last Intake of Fluids: Jul 28, 2017 Time of Last Intake of Fluids: 2358 Date of Last Intake of Solids: Jul 28, 2017 Time of Last Intake of Solids: 2358 Procedure Planning Contraindications for Sedation: None Current Medications Reviewed: Yes Notes The planned sedation has been discussed with the patient. Informed Consent was obtained. I have identified the patient, determined the appropriateness of sedation and have assessed the patient immediately prior to the procedure. All medicine(s) and interventions are by my order.
--- NOTE | 2017-07-29 14:07 | Neurology Progress Notes ---
Neurology Progress Note Date of Service Jul 29, 2017. Benito Nugent is a 47 year old male with PMH CVA, HTN, hypothyroidism, PFO, arthritis. In November 2014 he was hospitalized and seen by Dr Macias for a for cerebellar CVA. He was discharged on plavix and aspirin but the aspirin was stopped after 5 days and he is still on the plavix 75 mg. He was at work today and presented with left lower extremity weakness, numbness which lasted for about a minute there was some blurring of vision and dizziness and a mild headache. he took and aspirin and he was brought to the ED. His is in the room and states he is back to baseline. his blood pressure was somewhat elevated on admission He is in his room doing well after the ELLI. denies any new symptoms. denies CP, SOB, abdominal pain, one sided numbness weakness, tingling, falls, swallowing issues, N, V, hearing loss or tinnitus, Objective Date Time Temp Pulse Resp B/P (MAP) Pulse Ox O2 Delivery O2 Flow Rate FiO2 07/29/17 13:15 36.7 62 20 130/87 (101) 95 Room Air 07/29/17 13:15 94 Room Air 07/29/17 12:43 57 20 114/66 (82) 94 Room Air 07/29/17 12:32 75 20 102/68 (79) 94 Room Air 07/29/17 12:21 62 22 110/60 (77) 94 Room Air 07/29/17 12:12 60 19 97/57 (70) 93 Room Air 07/29/17 12:04 65 20 111/63 (79) 97 Nasal Cannula 2 07/29/17 12:01 Nasal Cannula 2 07/29/17 12:00 56 19 108/55 96 Nasal Cannula 2 07/29/17 11:55 51 20 111/53 97 Nasal Cannula 2 07/29/17 11:50 58 21 112/64 96 Nasal Cannula 2 07/29/17 11:45 61 9 127/61 96 Nasal Cannula 2 07/29/17 11:43 Nasal Cannula 2 07/29/17 11:40 60 19 113/66 98 Nasal Cannula 2 07/29/17 11:38 67 24 132/68 98 Nasal Cannula 2 07/29/17 10:54 62 12 141/79 (99) 97 Room Air 07/29/17 08:00 95 Room Air 07/29/17 07:27 36.4 49 16 107/69 (82) 95 Room Air 07/29/17 04:47 36.8 63 18 114/70 (85) 94 Room Air 07/29/17 04:00 Room Air 07/29/17 00:00 Room Air 07/28/17 23:55 36.7 61 18 153/77 (102) 95 Room Air 07/28/17 21:37 36.8 67 12 157/101 (119) 94 Room Air 135/85 (102) 07/28/17 20:00 Room Air 07/28/17 16:00 127/84 (98) 07/28/17 15:50 Room Air 07/28/17 14:44 36.6 66 18 145/88 (107) 95 Room Air Last 24 Hours Test 07/29/17 05:50 Triglycerides Level 79 mg/dl Cholesterol Level 158 mg/dl HDL Cholesterol 51 mg/dl LDL Cholesterol, Calculated 91 mg/dl VLDL Cholesterol, Calculated 16 mg/dl Cholesterol/HDL Ratio 3.1 Imaging: ELLI - The left ventricle is normal in size. * There is mild concentric left ventricular hypertrophy. * The left ventricular wall motion is normal. * Left ventricular systolic function is normal. * Ejection Fraction = 60-65%. * There is no valvular disease * No thrombus is detected in the left atrial appendage. * There is a prominent right atrial eustachian valve with partial atrial division. * Patent foramen ovale is present * Injection of contrast documented a small interatrial shunt. doppler LE- No DVT within the right or left lower extremity. Nonocclusive calcified thrombus within the bilateral lesser saphenous veins. Therefore, this is consistent with chronic thrombus. doppler UE- No DVT within the right or left upper extremity. Exam: Physical Exam: Constitutional: appearance nourished, healthy and normal Ears, Nose, Mouth and Throat: mucous membranes moist, no injection and skin normal, eyes normal Cardiovascular: normal S-1 and S-2 and regular rate and rhythm Respiratory: clear to auscultation (CTA) and no rales, rhonchi or wheeze Musculoskeletal: no peripheral edema and good distal pulses Skin: no stigmata of neurocutaneous disease noted and normal and intact Eyes: extraocular muscles intact (EOMI) and pupils equal, round and reactive to light (PERRL) NEUROLOGIC EXAMINATION: Mental status: Alert and interactive Oriented to full date and location Oriented to person Speech fluent with no evidence of aphasia Cranial Nerves smile eye brow raise symmetric Coordination: finger to nose no bipass or tremor Gait/Stance: Posture sitting up in bed Motor: Negative for pronator drift of out stretched arms with eyes closed. Strength: biceps triceps hand potato picker 5/5 bilaterally hip flex plantar flex ext 5/5 bilaterally Current Inpatient Medications Medications (Trade) Dose Ordered Sig/Reta Route Start Time Stop Time Status Last Admin Dose Admin Enoxaparin Sodium (Lovenox Inj) 40 mg Q24H SC 07/28/17 09:00 08/27/17 08:59 07/28/17 08:24 40 MG Acetaminophen (Tylenol Tab) 650 mg Q4H PRN PO 07/27/17 23:00 08/26/17 22:59 Nitroglycerin (Nitrostat Tab) 0.4 mg UD PRN SL 07/27/17 23:00 08/26/17 22:59 Aspirin (Ecotrin Tab) 81 mg QAM PO 07/28/17 09:00 08/27/17 08:59 07/28/17 08:23 81 MG Tramadol HCl (Ultram Tab) 25 mg Q6H PRN PO 07/27/17 23:00 08/26/17 22:59 Prochlorperazine Edisylate 5 mg/ Syringe 5 ml @ 5 mls/min Q6H PRN IV 07/27/17 23:00 08/26/17 22:59 Lorazepam (Ativan Inj) 0.5 mg Q4H PRN IV 07/27/17 23:00 08/26/17 22:59 Clopidogrel Bisulfate (plAVix TAB) 75 mg DAILY PO 07/28/17 09:00 08/27/17 08:59 07/28/17 08:23 75 MG Miscellaneous (Iv Fluids Completed) 1 ea PRN PRN N/A 07/28/17 01:00 07/28/18 00:59 Levothyroxine Sodium (Synthroid Tab) 112 mcg DAILYBB PO 07/29/17 06:30 08/28/17 06:29 07/29/17 13:04 112 MCG Lisinopril (Zestril Tab) 10 mg QAM PO 07/29/17 09:00 08/28/17 08:59 Simvastatin (Zocor Tab) 20 mg HS PO 07/29/17 21:00 08/27/17 20:59 Impression 47 year old male s/p right LE weakness resolved Plan 1. cardiology - TTE previously showed PFO 2. MRI combo brain no evidence of new stroke 3. no arrythmia noted on out patient cardionet 4. continue to optimize HTN, DL LDL <70 5. continue plavix 75 mg 6. coag study was normal and no DVT on previous study 7. HTN, DL optimize, LDL < 70 8. US UE/LE bilaterally 9. ELLI - consult cardiology- done this am preliminary small PFO minimal shunting 10. out patient cardio net for further evaluation of arrhythmia 11. Dr Copeland cardiology to have the cardiology team look at ELLI imaging and coordinate a plan- antiplatelet vs anti coag??? 12. will see in our clinic in 2-[address] Valorie Macias or Valorie Santos [facility] neurology schedule. I have seen and discussed above patient with Dr Valorie Macias, neurology Pt seen, discussed with Dr Hackett who has engaged Dr Ramirez, hematology. LE venous doppler shows calcified thrombus in superficial veins. I reviewed prior venous doppler LE with radiology. Superficial veins are not imaged in the prior study. Given, PFO, superficial DVT have decided to use anticoagulants. Pt understands, discussed novel anticoagulants as have been rec, risk of bleeding, reversal. Pt will need to see [place] cardiology and stroke Neurology and will likely need a closure of PFO given prior stroke and recent TIA. I would rec asa 81 mg in conjunction with anticoagulants. Continued optimization of bp and lipids. Pt should have repeat cardionet, Pt should see us in follow-up. SANDEEP Macias MD
[2017-07-29] MEDS: CLOPIDOGREL BISULFATE 75 MG TAB PO SCH (14:26)
[2017-07-29] MEDS: ENOXAPARIN 40 MG/0.4 ML SYR SC SCH (14:28)
[2017-07-29] MEDS: ASPIRIN 81 MG ECTAB PO SCH (14:28)
--- NOTE | 2017-07-29 14:51 | TEE ---
*NOTICE TO RECEIVING DEMOCRAT AGENCY This information is strictly Confidential and protected under [place] law. [place] law prohibits you from making any further disclosure of this information unless further disclosure is expressly permitted by the written consent of the person to whom it pertains or is authorized by law. A general authorization for the release of medical or other information is not sufficient for this purpose. Hospital accepts no responsibility if the information is made available to any other person, INCLUDING THE PATIENT. Interpretation Summary * Name: VENKATESH SANDRA Study Date: 07/29/2017 10:32 AM BP: 132/68 mmHg * Patient Location: [facility]\S\N280\S\1 HR: 67 * : 1970 (M/d/yyyy) Gender: Male Height: 72 in * Age: 47 yrs Ethnicity: [place] Weight: 256 lb * Ordering Physician: Lenard Copeland * Referring Physician: Self, Referred * Performed By: Yuki Patel RDCS * * Reason For Study: SOURCE OF EMBOLI * BSA: 2.4 m2 * START TIME 11:38AM * END TIME 12:01PM * -- Conclusions -- * The left ventricle is normal in size. * There is mild concentric left ventricular hypertrophy. * The left ventricular wall motion is normal. * Left ventricular systolic function is normal. * Ejection Fraction = 60-65%. * There is no valvular disease * No thrombus is detected in the left atrial appendage. * There is a prominent right atrial eustachian valve with partial atrial division. * Patent foramen ovale is present * Injection of contrast documented a small interatrial shunt. Procedure Details * ELLI Probe #1 utilized for procedure. * The study was performed in Cardiopulmonary Department. * Time out was conducted by the physician, nurse, and power lineman technician with positive identification of patient and procedure. * Informed consent for Transesophageal Echocardiogram was obtained prior to the procedure. * An intravenous line was placed. A topical anesthetic agent was used for oropharangeal anesthesia. A bite block was inserted. * The patient's vital signs, including blood pressure, heart rate, pulse oximetry and cardiac rhythm were monitored throughout the procedure . * Midazolam 5 mg administered for sedation. * Meperidine 37.5 mg administered for sedation. * The posterior oropharynx was anesthetized using a topical anesthetic spray. A bite guard was inserted. * A multifrequency, multiplane transesopheageal echocardiographic endoscope was inserted and manipulated in the standard fashion to achieve multiplane views. * The transesophageal probe was passed without difficulty. * The usual views were obtained; basal, mid-esophageal, transgastric and aortic views. * The patient tolerated the procedure well without evidence of orophangeal or esophageal trauma. * A 2D transesophageal echocardiogram with spectral and color flow Doppler was performed. * Contrast injection with agitated saline was performed. Left Ventricle * The left ventricle is normal in size. * There is mild concentric left ventricular hypertrophy. * Left ventricular systolic function is normal. * Ejection Fraction = 60-65%. * The left ventricular wall motion is normal. Right Ventricle * The right ventricle is normal in size and function. * Prominent moderator band is present Atria * The left atrial size is normal. * No thrombus is detected in the left atrial appendage. * Right atrial size is normal. * There is a prominent right atrial eustachian valve with partial atrial division. * Patent foramen ovale * Injection of contrast documented an interatrial shunt. Mitral Valve * The mitral valve anatomy is normal. * There is no mitral valve stenosis. * Significant mitral regurgitation is absent. Tricuspid Valve * The tricuspid valve anatomy is normal. * There is no tricuspid stenosis. * There is trace tricuspid regurgitation. Aortic Valve * The aortic valve is trileaflet. * No hemodynamically significant valvular aortic stenosis. * No aortic regurgitation is present. Pulmonic Valve * The pulmonic valve is not well seen, but is grossly normal. Great Vessels * The aortic root is normal size. * There is minimal atheromatous changes of the distal aortic arch. Pericardium * There is no pericardial effusion.
--- NOTE | 2017-07-29 15:59 | CARDIOLOGY CONSULTATION ---
DATE OF CONSULTATION: 07/29/2017 SUBJECTIVE: Consultation placed for procedure request transesophageal echocardiogram. Procedure indications were discussed in detail with the patient and informed consent was obtained. No contraindications to proceeding with conscious sedation. Please refer to full transesophageal echocardiogram report for results.
[2017-07-29] MEDS ORDERED: LEVO112T2 PO (17:26)
[2017-07-29] MEDS ORDERED: XRL15 PO (17:26)
[2017-07-29] MEDS ORDERED: SIMV20TA5 PO (17:26)
[2017-07-29] MEDS ORDERED: ASPEC81 PO (17:26)
--- NOTE | 2017-07-29 17:40 | Discharge Instructions ---
Discharge Instructions Date of Service Jul 29, 2017. Admission Reason for Admission: TIA Discharge Discharge Diagnosis / Problem: TIA, hx. of CVA, PFO Discharge Goals Goal(s): Decrease discomfort, Improve function, Diagnostic testing, Therapeutic intervention Activity Recommendations Activity Limitations: resume your previous activity . Instructions / Follow-Up Instructions / Follow-Up Please follow-up with your primary care doctor * You should follow-up with cardiology in [place] regarding the PFO * You should follow-up with the stroke neurologist in [place] * Stop taking Plavix * You will be started on Xarelto - 15mg twice a day for 21 days, and then 20mg daily * Your dose of Zocor will change from 10mg nightly to 20mg nightly * Your dose of Synthroid will change from 100mcg to 112mcg * Please take aspirin 81mg daily Current Hospital Diet Patient's current hospital diet: AHA Diet (Heart Healthy) Discharge Diet Recommended Diet: AHA Diet (Heart Healthy) Pending Studies Studies pending at discharge: no Laboratory Results Lipid Panel Test 07/29/17 05:50 Range/Units Triglycerides Level 79 0-150 mg/dl Cholesterol Level 158 0-200 mg/dl HDL Cholesterol 51 mg/dl Cholesterol/HDL Ratio 3.1 LDL Cholesterol, Calculated 91 mg/dl Medical Emergencies . Who to Call and When: Medical Emergencies: If at any time you feel your situation is an emergency, please call 911 immediately. . Non-Emergent Contact Non-Emergency issues call your: Primary Care Provider . . "Provider Documentation" section prepared by Deejay Hackett. . VTE Core Measure Inpt VTE Proph given/why not?: Enoxaparin (Lovenox)SQ
--- NOTE | 2017-07-29 17:54 | Progress Note ---
Subjective Date of Service: Jul 29, 2017. Subjective Pt evaluation today including: conversation w/ patient, physical exam, lab review, review of studies, review of inpatient medication list Saw/examined the patient in room 280 no problems/issues to note today eager to go home Problem List Medical Problems: (1) Transient weakness of left leg Status: Acute Review of Systems Constitutional: No fever, No chills Respiratory: No cough, No sputum, No shortness of breath Cardiac: No chest pain Abdomen: No pain, No nausea, No vomiting, No diarrhea Neurologic: No memory loss, No paralysis, No weakness, No numbness/tingling, No vertigo, No balance problems Heme: No abnormal bleeding/bruising Medications Current Inpatient Medications Medications (Trade) Dose Ordered Sig/Reta Route Start Time Stop Time Status Last Admin Dose Admin Enoxaparin Sodium (Lovenox Inj) 40 mg Q24H SC 07/28/17 09:00 08/27/17 08:59 07/28/17 08:24 40 MG Acetaminophen (Tylenol Tab) 650 mg Q4H PRN PO 07/27/17 23:00 08/26/17 22:59 Nitroglycerin (Nitrostat Tab) 0.4 mg UD PRN SL 07/27/17 23:00 08/26/17 22:59 Aspirin (Ecotrin Tab) 81 mg QAM PO 07/28/17 09:00 08/27/17 08:59 07/28/17 08:23 81 MG Tramadol HCl (Ultram Tab) 25 mg Q6H PRN PO 07/27/17 23:00 08/26/17 22:59 Prochlorperazine Edisylate 5 mg/ Syringe 5 ml @ 5 mls/min Q6H PRN IV 07/27/17 23:00 08/26/17 22:59 Lorazepam (Ativan Inj) 0.5 mg Q4H PRN IV 07/27/17 23:00 08/26/17 22:59 Clopidogrel Bisulfate (plAVix TAB) 75 mg DAILY PO 07/28/17 09:00 08/27/17 08:59 07/29/17 14:26 75 MG Miscellaneous (Iv Fluids Completed) 1 ea PRN PRN N/A 07/28/17 01:00 07/28/18 00:59 Levothyroxine Sodium (Synthroid Tab) 112 mcg DAILYBB PO 07/29/17 06:30 08/28/17 06:29 07/29/17 13:04 112 MCG Lisinopril (Zestril Tab) 10 mg QAM PO 07/29/17 09:00 08/28/17 08:59 07/29/17 14:26 10 MG Simvastatin (Zocor Tab) 20 mg HS PO 07/29/17 21:00 08/27/17 20:59 Objective Vital Signs Date Time Temp Pulse Resp B/P (MAP) Pulse Ox O2 Delivery O2 Flow Rate FiO2 07/29/17 16:05 36.7 64 16 122/80 (94) 96 Room Air 07/29/17 16:00 Room Air 07/29/17 13:15 36.7 62 20 130/87 (101) 95 Room Air 07/29/17 13:15 94 Room Air 07/29/17 12:43 57 20 114/66 (82) 94 Room Air 07/29/17 12:32 75 20 102/68 (79) 94 Room Air 07/29/17 12:21 62 22 110/60 (77) 94 Room Air 07/29/17 12:12 60 19 97/57 (70) 93 Room Air 07/29/17 12:04 65 20 111/63 (79) 97 Nasal Cannula 2 07/29/17 12:01 Nasal Cannula 2 07/29/17 12:00 56 19 108/55 96 Nasal Cannula 2 07/29/17 11:55 51 20 111/53 97 Nasal Cannula 2 07/29/17 11:50 58 21 112/64 96 Nasal Cannula 2 07/29/17 11:45 61 9 127/61 96 Nasal Cannula 2 07/29/17 11:43 Nasal Cannula 2 07/29/17 11:40 60 19 113/66 98 Nasal Cannula 2 07/29/17 11:38 67 24 132/68 98 Nasal Cannula 2 07/29/17 10:54 62 12 141/79 (99) 97 Room Air 07/29/17 08:00 95 Room Air 07/29/17 07:27 36.4 49 16 107/69 (82) 95 Room Air 07/29/17 04:47 36.8 63 18 114/70 (85) 94 Room Air 07/29/17 04:00 Room Air 07/29/17 00:00 Room Air 07/28/17 23:55 36.7 61 18 153/77 (102) 95 Room Air 07/28/17 21:37 36.8 67 12 157/101 (119) 94 Room Air 135/85 (102) 07/28/17 20:00 Room Air Physical Exam General Appearance: no apparent distress Respiratory/Chest: lungs clear, normal breath sounds, no respiratory distress, no accessory muscle use Cardiovascular: regular rate, rhythm, no edema, no murmur Abdomen: normal bowel sounds, non tender, soft Extremities: normal range of motion, non-tender, normal inspection, no pedal edema, no calf tenderness Neurologic/Psychiatric: construction cost estimator II-XII nml as tested, no motor/sensory deficits, alert, normal mood/affect, oriented x 3 Laboratory Results Last 24 Hours Test 07/29/17 05:50 Triglycerides Level 79 mg/dl Cholesterol Level 158 mg/dl HDL Cholesterol 51 mg/dl LDL Cholesterol, Calculated 91 mg/dl VLDL Cholesterol, Calculated 16 mg/dl Cholesterol/HDL Ratio 3.1 Assessment and Plan This is a 47 year old male with a PMH of HTN, HLD, hypothyroidism, hx. of CVA - presents with transient L lower extremity weakness/numbness/tingling Transient Numbness/Tingling in the setting of a history of CVA 07/29 ELLI done PFO present LE Doppler suggests chronic calcified bilateral lesser saphenous veins spoke with cardiology and hematology regarding this finding - recommendation of anticoagulation made will d/c with Xarelto - called case hardener, he will get a coupon card called pharmacy - he will be sent home with 4 tablets of 15mg to last the weekend in case of any issues will be on Xarelto 15mg twice daily for 21 days and then 20 mg daily 07/[address], Brain MRI, MRA and CTA are all negative for acute process for now, we can continue aspirin and Plavix neurology consulted continue low dose Zocor, can possibly increase this dose will check vitamin B12 levels Hypothyroidism TSH > 10 will increase Synthroid dose to 112mcg recheck TSH in 4-6 weeks HTN initially permissive HTN was allowed prior to ruling out acute CVA restarting Lisinopril and will monitor BP HLD increased Zocor dose to 20mg daily DVT ppx Lovenox FULL CODE
[2017-07-29] MEDS ORDERED: RIVAROXABAN TAB 15 MG TAB PO ONE (18:00)
[2017-07-29] MEDS ORDERED: RIVAROXABAN 20 MG TAB PO ONE (18:00)
--- NOTE | 2017-07-29 18:14 | Discharge Summary ---
Discharge Summary Date of Service Jul 29, 2017. Discharge Summary Admission Date: Jul 27, 2017 at 22:27 Discharge Date: Jul 29, 2017 Discharge Disposition: Home Principal Diagnosis: TIA Hx. of CVA HTN HLD Hypothyroidism Medication Reconciliation New Medications: Rivaroxaban (Xarelto) 15 Mg Tab 15 MG PO BID for 21 Days, #42 TABS Aspirin (Aspirin EC Low Dose) 81 Mg Ectab 81 MG PO QAM for 90 Days, #90 TABS Changed Medications: Levothyroxine Sodium (Synthroid) 112 Mcg Tab 1 TAB PO DAILY for 30 Days, #30 TAB 5 Refills (Changed from: Levothyroxine Sodium 100 Mcg Tab 100 Mcg PO DAILY) Simvastatin (Zocor) 20 Mg Tab 1 TAB PO HS for 30 Days, #30 TAB 5 Refills (Changed from: Simvastatin 10 Mg Tab 1 Tab PO HS) Continued Medications: Lisinopril (Lisinopril) 10 Mg Tab 1 TAB PO DAILY Discontinued Medications: Aspirin (Aspirin) 325 Mg Tab 325 MG PO DAILY PRN for Pain Clopidogrel (Plavix) 75 Mg Tab 75 MG PO DAILY, TAB Admission Information HPI (per Admitting provider): DATE OF ADMISSION: 07/27/2017 PRIMARY CARE PHYSICIAN: Adal Joel MD. CHIEF COMPLAINT: Left leg weakness, numbness. HISTORY OF PRESENT ILLNESS: History obtained from patient and records. Medical history significant for CVA, hypertension, hypothyroidism, PFO, arthritis. Recent confinement November 2014 for cerebellar CVA. Patient discharged on Aspirin, Plavix. Aspirin later discontinued outpatient. Patient was at work today when he noted left lower extremity weakness, numbness symptoms, no back pain. Lasted for about a minute. Transient dizziness and vague headache symptoms. Compliant with home medications. Patient took [id number] aspirin. Patient currently comfortable at the ER. MEDICAL HISTORY: As above. SURGERIES: Knee surgery. HOME MEDICATIONS: Include Plavix, lisinopril, levothyroxine, simvastatin. ALLERGIES: No known drug allergies. FAMILY HISTORY: There is a family history of alcoholism, AFib. PERSONAL AND SOCIAL HISTORY: Nonsmoker, no chronic intake of alcoholic beverages. [employer] employee. REVIEW OF SYSTEMS: As per HPI. All 10 systems reviewed. All other ROS negative. PHYSICAL EXAMINATION: VITAL SIGNS: Blood pressure was noted to be 167/104, later 122/82, pulse rate 70, RR 18, temperature 36.7, sats 96 on room air. GENERAL: Obese, comfortable, pleasant, no respiratory distress. SKIN: Normal color. Warm. HEENT: Partial alopecia. Pale palpebral conjunctiva. No ptosis. Moist buccal mucosa. NECK: Short, supple. CHEST: Clear to auscultation. No tenderness. HEART: Regular rate and rhythm. No murmur. ABDOMEN: Soft, nontender. EXTREMITIES: No edema, no gross deformities. No tenderness. NEUROLOGIC: Coherent. No gross focality. LABORATORY DATA: Hemoglobin was noted to be 15.6, hematocrit 32.9, white cell count 9, platelets 181. Sodium 139, potassium 3.6, chloride 103, CO2 27, creatinine 1.28, BUN 19. TSH 17.9 CT head, no acute pathology. CT head angio, normal study. CT neck angio no significant stenosis. ASSESSMENT: 1. Transient ischemic attack. History of cerebellar CVA. 2. Hypertension, slightly elevated 3. Hypothyroidism, TSH markedly elevated. PLAN: Observation PCU, neuro checks MRI/MRA brain Aspirin and Plavix for now for secondary stroke prevention until recurrent stroke ruled out Neurology consult RE TIA (Patient known to Dr. Macais) Permissive hypertension until recurrent stroke ruled out Recheck other TFTs, Levothyroxine dose may need adjustment pending results DVT prophylaxis Lovenox subQ. Full code. Hospital Course This is a 47 year old male with a PMH of HTN, HLD, hypothyroidism, hx. of CVA - presents with transient L lower extremity weakness/numbness/tingling Transient Numbness/Tingling in the setting of a history of CVA 07/29 ELLI done PFO present LE Doppler suggests chronic calcified bilateral lesser saphenous veins spoke with cardiology and hematology regarding this finding - recommendation of anticoagulation made will d/c with Xarelto - called medical case manager, he will get a coupon card called pharmacy - he will be sent home with 4 tablets of 15mg to last the weekend in case of any issues will be on Xarelto 15mg twice daily for 21 days and then 20 mg daily 07/[address], Brain MRI, MRA and CTA are all negative for acute process for now, we can continue aspirin and Plavix neurology consulted continue low dose Zocor, can possibly increase this dose will check vitamin B12 levels Hypothyroidism TSH > 10 will increase Synthroid dose to 112mcg recheck TSH in 4-6 weeks HTN initially permissive HTN was allowed prior to ruling out acute CVA restarting Lisinopril and will monitor BP HLD increased Zocor dose to 20mg daily DVT ppx Lovenox FULL CODE Total time spent on discharge = 45 minutes This includes examination of the patient, discharge planning, medication reconciliation, and communication with other providers. Discharge Instructions Please follow-up with your primary care doctor * You should follow-up with cardiology in [place] regarding the PFO * You should follow-up with the stroke neurologist in [place] * Stop taking Plavix * You will be started on Xarelto - 15mg twice a day for 21 days, and then 20mg daily * Your dose of Zocor will change from 10mg nightly to 20mg nightly * Your dose of Synthroid will change from 100mcg to 112mcg * Please take aspirin 81mg daily
[2017-07-29] MEDS ORDERED: SIMVASTATIN 20 MG TAB PO SCH (21:00)
[2017-07-29] MEDS ORDERED: RIVAROXABAN TAB 15 MG TAB PO SCH (21:00)
== END 2017-07-29 18:32 | disposition home or self-care (01) ==
LOC: C.EDB 19:53 → C.MED 22:27 → ENRESERV 23:06
PROVIDERS: ADMIT Internal Medicine; ATTEND Family Medicine
DX: G45.9 Transient cerebral ischemic attack, unspecified (principal); I10 Essential (primary) hypertension; E78.5 Hyperlipidemia, unspecified; E03.9 Hypothyroidism, unspecified; Z98.890 Other specified postprocedural states; Z86.73 Personal history of transient ischemic attack (TIA), and cerebral infarction without residual deficits; Z79.82 Long term (current) use of aspirin; Z79.02 Long term (current) use of antithrombotics/antiplatelets; Z82.49 Family history of ischemic heart disease and other diseases of the circulatory system